=== PATIENT | male | born 1990 | race African-American/Black ===

== ENCOUNTER 2020-01-03 10:35 | Emergency (ER) | payer OTHER, MEDICAID ==
[~2020-01-03] VITALS: Ht 185.4 cm; Wt 91.0 kg
[2020-01-03] MEDS ORDERED: SODIUM CHLORIDE 0.9% 1,000 ML IV ONE (10:47)
[2020-01-03] MEDS ORDERED: LEVETIRACETAM 1000MG/100ML 100 ML IV ONE (11:00)
[2020-01-03 11:19] LABS: BASOPHILS % 0.6 % (0.0-2.0); HEMATOCRIT. 46.8 % (42.0-52.0); HEMOGLOBIN. 16.2 g/dL (14.0-18.0); MEAN CORPUSCULAR HEMOGLOBIN 30.2 pg (28.0-32.0); MEAN CORPUSCULAR VOLUME 87.4 fL (80.0-94.0); MEAN PLATELET VOLUME 10.3 fl (7.4-10.4); NEUTROPHILS % 74.4 % (40.0-76.0); PLATELET 135 x1000/uL (130-400); RED BLOOD CELL COUNT 5.35 mill/uL (4.7-6.1); RED CELL DISTRIBUTION WIDTH 13.2 % (11.6-14.6)
[2020-01-03 11:26] LABS: CHLORIDE 111 mEq/L (98-107)
[2020-01-03 11:29] LABS: ETHANOL BLOOD < 10 mg/dL
[2020-01-03 14:32] VITALS: BP 113/78
[2020-01-03 14:57] LABS: *AMPHETAMINES SCREEN URINE NEGATIVE (NEGATIVE); *BARBITURATES SCREEN URINE NEGATIVE (NEGATIVE); *BENZODIAZEPINES SCREEN URINE NEGATIVE (NEGATIVE); *COCAINE SCREEN URINE NEGATIVE (NEGATIVE); METHADONE URINE SCREEN NEGATIVE (NEGATIVE); OPIATES URINE SCREEN NEGATIVE (NEGATIVE)
[2020-01-03 14:58] LABS: CANNABINOID URINE SCREEN PRESUMTIVE POSITIVE (NEGATIVE); PHENCYCLIDINE URINE SCREEN NEGATIVE (NEGATIVE)
== END 2020-01-03 14:36 | disposition home or self-care (01) ==
LOC: ER 10:50
DX: R56.9 Unspecified convulsions (principal)
CPT/HCPCS: 36415; 80053; 80305; 80320; 85025; 96365; 99283; J1953; J7030; G0480

== ENCOUNTER 2020-03-31 10:58 | Emergency (ER) | payer MEDICAID, OTHER ==
[~2020-03-31] VITALS: Ht 190.5 cm; Wt 87.0 kg
[2020-03-31] MEDS ORDERED: LEVETIRACETAM 1000MG/100ML 100 ML IV ONE (11:30)
[2020-03-31 12:00] LABS: BASOPHILS % 0.6 % (0.0-2.0); HEMATOCRIT. 45.1 % (42.0-52.0); HEMOGLOBIN. 15.8 g/dL (14.0-18.0); LYMPHOCYTES % 36.4 % (20.0-50.0); MEAN CORPUSCULAR HEMOGLOBIN 30.9 pg (28.0-32.0); MEAN PLATELET VOLUME 10.4 fl (7.4-10.4); MONOCYTES % 6.5 % (2.0-8.0); NEUTROPHILS % 53.5 % (40.0-76.0); PLATELET 148 x1000/uL (130-400); RED BLOOD CELL COUNT 5.12 mill/uL (4.7-6.1); RED CELL DISTRIBUTION WIDTH 14.3 % (11.6-14.6)
[2020-03-31 13:48] LABS: CHLORIDE 110 mEq/L (98-107)
[2020-03-31 14:30] VITALS: BP 94/58
== END 2020-03-31 14:35 | disposition home or self-care (01) ==
LOC: ER 10:58
DX: G40.909 Epilepsy, unspecified, not intractable, without status epilepticus (principal); Z91.14 Patient's other noncompliance with medication regimen
CPT/HCPCS: 36415; 80053; 80320; 85025; 96365; 99285; J1953; G0480

== ENCOUNTER 2020-12-03 11:36 | Emergency (ER) | payer MEDICAID ==
[~2020-12-03] VITALS: Ht 182.9 cm; Wt 77.0 kg
[2020-12-03] MEDS ORDERED: BACITRACIN ZINC OINT UDPKT TOP ONE (12:30)
[2020-12-03] MEDS ORDERED: LEVETIRACETAM 1000MG PREMIX 100 ML IV ONE (12:30)
[2020-12-03] MEDS ORDERED: HYDROCODONE/ACETAMINOPHEN 5/325MG TABLET PO ONE (12:30)
[2020-12-03] MEDS ORDERED: LIDOCAINE HCL/EPINEPHRINE 1%-EPI 1:100,000 20 ML VIAL INFIL NR ×2 (14:30→14:45)
[2020-12-03] MEDS ORDERED: LEVE1000 MT (15:26)
[2020-12-03 15:59] VITALS: BP 94/67
== END 2020-12-03 16:03 | disposition home or self-care (01) ==
LOC: ER 11:41
DX: G40.909 Epilepsy, unspecified, not intractable, without status epilepticus (principal); S01.81XA Laceration without foreign body of other part of head, initial encounter; W01.0XXA Fall on same level from slipping, tripping and stumbling without subsequent striking against object, initial encounter; Y93.89 Activity, other specified; Y92.018 Other place in single-family (private) house as the place of occurrence of the external cause
CPT/HCPCS: 12013; 70450; 70486; 93005; 96374; 99285; J1953; J3490

== ENCOUNTER 2020-12-12 12:33 | Emergency (ER) | payer MEDICAID ==
[~2020-12-12] VITALS: Ht 182.9 cm; Wt 82.0 kg
[~2020-12-12 12:33] MED LIST: LEVE1000 MT
[2020-12-12 12:36] VITALS: BP 120/87
[2020-12-12] MEDS ORDERED: BACITRACIN ZINC OINT UDPKT TOP ONE (13:15)
== END 2020-12-12 13:32 | disposition home or self-care (01) ==
LOC: ER 12:33
DX: Z48.02 Encounter for removal of sutures (principal); Z98.890 Other specified postprocedural states
CPT/HCPCS: 99282; Z7610